=== PATIENT | male | born 1965 | race Caucasian/White ===

== ENCOUNTER → 2023-02-17 | Outpatient (CLI) | payer OTHER ==
[~2023-02-17] MED LIST: ALBU8.5H; FLOM0.4C39 PO; NEXI20CA33 PO; XARE10TA PO
== END ==
LOC: M PLAIMG 11:20
PROVIDERS: ATTEND Internal Medicine
DX: M17.0 Bilateral primary osteoarthritis of knee (principal); M19.031 Primary osteoarthritis, right wrist; M19.032 Primary osteoarthritis, left wrist

== ENCOUNTER → 2023-02-17 | Outpatient (REF) | payer OTHER | LOC: M SFHCRHEU 10:50 | PROVIDERS: ATTEND Internal Medicine | DX: M25.50 Pain in unspecified joint (principal) ==

== ENCOUNTER → 2023-04-19 | Outpatient (CLI) | payer OTHER ==
[2023-04-21 17:07] LABS: ANTI THROMBIN 3 ANTIGEN IMMUNO 81 % (72-124); ANTI THROMBIN 3 FUNCT ACTIVITY 111 % (75-135)
== END ==
LOC: M LAB 12:24
PROVIDERS: ATTEND Psychiatry & Neurology Neurology
DX: I63.9 Cerebral infarction, unspecified (principal); E11.9 Type 2 diabetes mellitus without complications; E07.9 Disorder of thyroid, unspecified

== ENCOUNTER → 2023-06-22 | Outpatient (CLI) | payer OTHER | LOC: M CARPUL 09:28 | PROVIDERS: ATTEND Family Medicine | DX: I63.9 Cerebral infarction, unspecified (principal) ==

== ENCOUNTER → 2023-07-26 | Outpatient (CLI) | payer OTHER | LOC: M PLAIMG 09:09 | PROVIDERS: ATTEND Nurse Practitioner Family | DX: M54.2 Cervicalgia (principal) ==

== ENCOUNTER → 2024-10-26 | Outpatient (CLI) | payer OTHER ==
[~2024-10-26] MED LIST changes: -FLOM0.4C39 PO; +TAMS-18 PO
== END ==
LOC: M RAD 15:31
PROVIDERS: ATTEND Nurse Practitioner Family
DX: M79.604 Pain in right leg (principal); M79.605 Pain in left leg

== ENCOUNTER → 2025-01-23 | Outpatient (CLI) | payer OTHER | LOC: M PLAIMG 14:15 | PROVIDERS: ATTEND Family Medicine | DX: R60.0 Localized edema (principal) ==